=== PATIENT | female | born 1995 | race Caucasian/White ===

== ENCOUNTER 2024-05-24 15:01 | Outpatient (OUT) | payer OTHER, SELFPAY ==
[2024-05-24 15:58] LABS: Anion Gap 11.6; BUN Creatinine Ratio 12.2; Calcium 8.4 mg/dL (8.5-10.1); Carbon Dioxide 28.3 mmol/L (21.0-32.0); Chloride 105 mmol/L (98-107); Estimated GFR (African America >60 (>=60); Estimated GFR (Non-African Ame >60 (>=60); Glucose 74 mg/dL (74-106); Potassium 3.9 mmol/L (3.5-5.1); Sodium 141 mmol/L (136-145)
== END 2024-05-24 15:02 | disposition home or self-care (01) ==
PROVIDERS: PCP Family Medicine; Visit Provider Obstetrics & Gynecology
DX: Z01.812 Encounter for preprocedural laboratory examination (principal); R93.89 Abnormal findings on diagnostic imaging of other specified body structures; R10.2 Pelvic and perineal pain; E16.2 Hypoglycemia, unspecified
CPT/HCPCS: 36415; 80048

== ENCOUNTER 2024-06-04 07:32 | Day surgery (SDC) | payer OTHER, SELFPAY ==
[2024-05-24 15:20] VITALS: BP 107/66; PULSE 60; TEMP 36.3; O2SAT 96; BMI 26.3
[2024-06-04] VITALS (12 sets, daily range): BP systolic 102–123; BP diastolic 65–89; PULSE 64–95; TEMP 36.2–36.3; O2SAT 92–100; BMI 26.3
--- OUTSIDE RECORDS SUMMARY | 2024-06-04 07:39 | XMS_ITS | CCD ---
Author Organization [facility] Care Team Providers Care Transportation Analyst Name Role Phone ARIEL DAVID Unavailable Unavailable ARIEL DAVID Unavailable Unavailable YAEL PAPPAS Unavailable Unavailable ARIEL DAVID Unavailable Unavailable ARIEL DAVID Unavailable Unavailable YAEL PAPPAS Unavailable Unavailable EDDI HANLEY Attending Unavailable YAEL PAPPAS Primary Care Unavailable BERENICE MATT Consulting Unavailable EDDI HANLEY Admitting Unavailable EDDI HANLEY Consulting Unavailable YEAL PAPPAS Primary Care Unavailable NATE DENISE Attending Unavailable NATE DENISE Attending Unavailable NATE DENISE Referring Unavailable YAEL PAPPAS Primary Care Unavailable YAEL PAPPAS Primary Care Unavailable CHRISSY RIVERS Attending Unavailable CHRISSY RIVERS Attending Unavailable CHRISSY RIVRES Referring Unavailable YAEL PAPPAS Primary Care Unavailable ALTAGRACIA ANTONIO Attending Unavailable ALTAGRACIA ANTONIO Attending Unavailable ALTAGRACIA ANTONIO Referring Unavailable ORQUIDEA MACIAS Attending Unavailable ALTAGRACIA ANTONIO Referring Unavailable ORQUIDEA MACIAS Attending Unavailable Allergies Allergy Classification Reported Allergen(s) Allergy Type Date of Onset Reaction(s) Facility (3 sources) Latex; Translations: [Latex] Propensity to adverse reactions (disorder) 6 [facility] Repository (1 source) natural latex rubber; Translations: [LATEX, NATURAL RUBBER] Propensity to adverse reactions to drug (disorder) 6 [facility] Repository Problems Active Problems Problem Classification Problem Date Documented Da te Episodic/Chronic External cause codes: Fall (1 source) Fall from bed, initial encounter; Translations: [FALL FROM BED INITIAL ENCOUNTER] Onset: 09-18-2020 Inflammatory diseases of female pelvic organs (1 source) Acute vaginitis; Translations: [ACUTE VAGINITIS] Onset: 09-18-2020 Episodic Other injuries and conditions due to external causes (4 sources) Other specified injuries of head, initial encounter; Translations: [OTH SPEC INJURIES HEAD INITIAL ENC] Onset: 09-09-2020 Other non-traumatic joint disorders (1 source) Pain in right knee; Translations: [Pain in right knee] Onset: 02-27-2024 Episodic Other non-traumatic joint disorders (1 source) Knee pain Onset: 02-27-2024 Episodic Unclassified (1 source) pain rt knee Onset: 02-27-2024 Unclassified (1 source) Foot Injury Onset: 10-03-2023 Past or Other Problems Problem Classification Problem Date Documented Da te Episodic/Chronic Superficial injury; contusion (1 source) Contusion of left foot, initial encounter; Translations: [Contusion of left foot, initial encounter] Onset: 10-03-2023 Episodic Results Test Name Value Interpretation Reference Range Facility XR KNEE RT MIN 4 VWSon 02-26 XR KNEE RT MIN 4 VWS XR KNEE RT MIN 4 VWS XR KNEE RT MIN 4 VWS HISTORY: 28-year-old female with Patellar pain, knee pain COMPARISON: None TECHNIQUE: 4 views of the knee obtained. FINDINGS: No fracture or dislocation. Joint spaces are well-maintained without significant degenerative changes. Small joint effusion. No aggressive appearing osseous lesions. IMPRESSION: * Small joint effusion. * Otherwise, unremarkable knee radiographs. Approved by Resident Mickey Sepulveda MD on 02/27/2024 8:26 PM IDutch MD have personally reviewed the image(s) and agree with and/or edited the report Finalized by Dutch Bartlett MD on 02/27/2024 8:36 PM [facility] US PELVIS LIMITED BLADDERon 02-24-2024 US PELVIS LIMITED BLADDER FINDINGS: Uterus 11.5 x 4.8 x 7.1 cm Endometrium 18 mm Right ovary 2.3 x 1.6 x 2.1 cm Left ovary 3.2 x 2.8 x 2.6 cm Pre-void bladder 324 cc Post-void bladder 19 cc The uterus is normal in size and orientation. No worrisome mass lesions are seen. No fluid is seen within the cul-de-sac. Normal follicular ovaries, normal size, no adnexal mass or increase in vascularity or or adnexal fluid. Slight endometrial thickening, partial cystic component centrally within the upper body/fundus. Lobular soft tissue echotexture 3 x 3 cm structure posterior bladder wall, possibly extrinsic impression from the uterine body/fundus. IMPRESSION: 1. Complex endometrium, correlate with menstrual cycle history, LABOR RELATIONS SPECIALIST consultation if abnormal bleeding is present. 2. bladder findings likely uterine impression, possible bladder mass. CT urogram would be of assistance for further characterization. TRANSCRIBED BY: ELECTRONICALLY SIGNED BY: Cal Garg MD Normal Not Available XR FOOT LT MIN 3 VWSon 10-03 XR FOOT LT MIN 3 VWS XR FOOT LT MIN 3 VWS History: Injury, heavy object dropped on left foot, pain first and second metatarsals. EXAM: Left foot 3 views COMPARISON: None FINDINGS: No fracture or dislocation. No osseous destruction. IMPRESSION: Negative exam. Finalized by Carlos Barnett MD on 10/03/2023 10:55 PM Normal [facility] Complete Blood Counton 10-30 Erythrocyte distribution width (RBC) [Ratio] 11.6 % Normal 11.0-15.0 [facility] Power Plant Operator Apprentice Comment on above: Performed By: #### C BC, TSH reflex FT4, CMP #### [facility] [address], [place] [id number] Hematocrit (Bld) [Volume fraction] 39.1 % Normal 35.0-47.0 [facility] [employer] Operator Apprentice Comment on above: Performed By: #### C BC, TSH reflex FT4, CMP #### [facility] [address], [place] [id number] Hemoglobin (Bld) [Mass/Vol] 13.5 g/dL Normal 11.6-15.5 [facility] [employer] Operator Apprentice Comment on above: Performed By: #### C BC, TSH reflex FT4, CMP #### [facility] [address], [place] [id number] MCH (RBC) [Entitic mass] 31.1 pg Normal 27.0-33.0 [place] [employer] Operator Apprentice Comment on above: Performed By: #### C BC, TSH reflex FT4, CMP #### [facility] [address], [place] [id number] MCHC (RBC) [Mass/Vol] 34.5 g/dL Normal 32.0-36.0 [facility] Specialist Comment on above: Performed By: #### C BC, TSH reflex FT4, CMP #### [facility] [address], [place] [id number] MCV (RBC) [Entitic vol] 90 fL Normal 80-100 [facility] Specialist Comment on above: Performed By: #### C BC, TSH reflex FT4, CMP #### [facility] [address], [place] [id number] Platelet mean volume (Bld) [Entitic vol] 9.40 fL Normal 7.50-12.50 [facility] Specialist Comment on above: Performed By: #### C BC, TSH reflex FT4, CMP #### [facility] [address], [place] [id number] Platelets (Bld) [#/Vol] 206 10*3/uL Normal 140-400 [facility] Specialist Comment on above: Performed By: #### C BC, TSH reflex FT4, CMP #### [facility] [address] [place] [address], [place] [id number] RBC (Bld) [#/Vol] 4.34 10*6/uL Normal 3.90-5.[address] [facility] Comment on above: Performed By: #### C BC, TSH reflex FT4, CMP #### [facility] [address], [place] [id number] RDW-SD 38.1 fL Normal 37.0-50.0 [facility] Specialist Comment on above: Performed By: #### C BC, TSH reflex FT4, CMP #### [facility] [address], [place] [id number] WBC (Bld) [#/Vol] 5.1 10*3/uL Normal 3.8-11.0 [facility] Comment on above: Performed By: #### C BC, TSH reflex FT4, CMP #### [facility] [address], [place] [id number] Comprehensive Metabolic Pane darrell 10-30-2021 Albumin [Mass/Vol] 4.8 g/dL Normal 3.6-5.1 [facility] [employer] Operator Apprentice Comment on above: Performed By: #### C BC, TSH reflex FT4, CMP #### [facility] [address], [place] [id number] Albumin/Globulin [Mass ratio] 2.7 {ratio} High 1.0-2.5 [facility] [employer] Operator Apprentice Comment on above: Performed By: #### C BC, TSH reflex FT4, CMP #### [facility] [address], [place] [id number] ALP [Catalytic activity/Vol] 37 U/L Normal 35-119 [facility] [employer] Operator Apprentice Comment on above: Performed By: #### C BC, TSH reflex FT4, CMP #### [facility] [address] [place] [address], [place] [id number] ALT [Catalytic activity/Vol] 15 U/L Normal 6-33 [facility] [employer] Operator Apprentice Comment on above: Result Comment: 08/29 Female reference range changed. Performed By: #### C BC, TSH reflex FT4, CMP #### [facility] [address], [place] [id number] Anion gap [Moles/Vol] 16 mmol/L Normal 12-20 [facility] [employer] Operator Apprentice Comment on above: Result Comment: Effe ctive 10/04/2019 reference range changed. Performed By: #### C BC, TSH reflex FT4, CMP #### [facility] [address] [place] [address], [place] [id number] AST [Catalytic activity/Vol] 17 U/L Normal 9-34 [facility] [employer] Operator Apprentice Comment on above: Performed By: #### C BC, TSH reflex FT4, CMP #### [facility] [address] [place] [address], [place] [id number] Bilirubin [Mass/Vol] 0.49 mg/dL Normal 0.30-1.20 [facility] [employer] Operator Apprentice Comment on above: Performed By: #### C BC, TSH reflex FT4, CMP #### [facility] [address], [place] [id number] BUN/CREA 20 Ratio Normal 6-22 [place] [employer] Operator Apprentice Comment on above: Performed By: #### C BC, TSH reflex FT4, CMP #### [facility] [address] [place] [address], [place] [id number] Calcium [Mass/Vol] 9.4 mg/dL Normal 8.6-10.2 [facility] Specialist Comment on above: Performed By: #### C BC, TSH reflex FT4, CMP #### [facility] [address], [place] [id number] Chloride [Moles/Vol] 107 mmol/L Normal 98-107 [facility] Specialist Comment on above: Performed By: #### C BC, TSH reflex FT4, CMP #### [facility] [address] [place] [address], [place] [id number] CO2 [Moles/Vol] 24 mmol/L Normal 20-31 [facility] Specialist Comment on above: Performed By: #### C BC, TSH reflex FT4, CMP #### [facility] [address], [place] [id number] Creatinine [Mass/Vol] 0.7 mg/dL Normal 0.6-1.4 [facility] Specialist Comment on above: Performed By: #### C BC, TSH reflex FT4, CMP #### [facility] [address], [place] [id number] eGFRAA 120 mL/min/1.73m2 Normal >60 [facility] Comment on above: Performed By: #### C BC, TSH reflex FT4, CMP #### [facility] [address], [place] [id number] eGFRNAA 99 mL/min/1.73m2 Normal >60 [facility] Specialist Comment on above: Performed By: #### C BC, TSH reflex FT4, CMP #### [facility] [address] [place] [address], [place] [id number] Globulin (S) [Mass/Vol] 1.8 g/dL Low 1.9-3.7 [facility] Specialist Comment on above: Performed By: #### C BC, TSH reflex FT4, CMP #### [facility] [address] [place] [address], [place] [id number] Glucose [Mass/Vol] 89 mg/dL Normal 65-99 [place] [employer] Operator Apprentice Comment on above: Result Comment: For FASTING Glucose --- ADA reference ranges: Normal 65-99 mg/dl Prediabetes 100-125 Diabetes >/= 126 Performed By: #### C BC, TSH reflex FT4, CMP #### [facility] [address], [place] [id number] Potassium [Moles/Vol] 4.0 mmol/L Normal 3.5-5.5 [facility] [employer] Operator Apprentice Comment on above: Performed By: #### C BC, TSH reflex FT4, CMP #### [facility] [address], [place] [id number] Protein [Mass/Vol] 6.6 g/dL Normal 6.1-8.1 [facility] [employer] Operator Apprentice Comment on above: Performed By: #### C BC, TSH reflex FT4, CMP #### [facility] [address], [place] [id number] Sodium [Moles/Vol] 143 mmol/L Normal 135-146 [facility] [employer] Operator Apprentice Comment on above: Performed By: #### C BC, TSH reflex FT4, CMP #### [facility] [address], [place] [id number] Urea nitrogen [Mass/Vol] 14 mg/dL Normal 7-25 [facility] [employer] Plant Operator Apprentice Comment on above: Performed By: #### C BC, TSH reflex FT4, CMP #### [facility] [address], [place] [id number] TSH w/ Reflex to Free T4on 0 - TSH 0.809 uIU/mL Normal 0.400-4.500 [facility] [employer] Operator Apprentice Comment on above: Performed By: #### C BC, TSH reflex FT4, CMP #### [facility] [address], [place] [id number] CT HEAD WO CONon 09-09-2020 CT HEAD WO CON EXAM TYPE: CT HEAD W O CON EXAM DATE AND TIME: 09/09/2020 3:42 PM EST INDICATION: 25 years old Female with headache COMPARISON: Head CT of 09/01/2015. TECHNIQUE: Multiple axial CT images of the head were obtained without contrast. Dose reduction techniques were achieved by using automated exposure control and/or adjustment of mA and/or kV according to patient size and/or use of iterative reconstruction technique. FINDINGS: Ventricles and sulci are normal in size and configuration. No extra-axial collection. No intracranial hemorrhage. No mass effect or edema. No CT evidence of large territorial infarction. Visualized paranasal sinuses are well aerated. Mastoids are clear. Calvarium is unremarkable. IMPRESSION: No intracranial hemorrhage or mass effect. Electronically authenticated by: BERENICE MATT Date: 2020-09-09 16:07 Normal [facility] URon 09-09-2020 , QUAL Negative Normal NEGATIVE [facility] Comment on above: Performed By: #### P REGU #### [facility] [address] [place] [address] Christa Jolly Intraoperative Noteon 2017 Intraoperative Note [id number][address] [place] [address] History and Physicalon 09-15 History and Physical [id number]#[address] [place] [address] Operative Report - Surgeon/P hysicianon 09-15-2017 Operative Report - Surgeon/Physician [id number]#[address] Provider Orderson 09-15-2017 Provider Orders [id number]#[address] [place] [address] Coding Summaryon 07-31-2017 Coding Summary CODING DATE: 017 [facility] STATUS: Home PAYOR: Medicaid HMO ADMIT DX: REASON FOR VISIT DX: Z30.2 Encounter for sterilization FINAL DX: PRINCIPAL: Z30.2 Encounter for sterilization SECONDARY: PROCEDURES DOCTOR NAME DATE 54633 Laparoscopy, surgical; with Ariel David DO 07/29/2017 fulguration of oviducts (with or without transection) NOTE: The code number assigned matches the documented diagnosis and / or procedure in the patient's chart. However, the narrative phrase printed from the coding software may appear abbreviated, or result in slightly different terminology. Coded By: Jenny Roberson Date Saved: 07/31/2017 08:[address] [facility] Consent Formson 07-31-2017 Consent Forms [id number] Intraoperative Note [id number] Intraoperative Recordon 07-31-2017 MAGR Intraoperative Record MAGR Intra-Op Record Summary Primary Physician: Ariel David DO Finalized Date/Time: 07/31/17 12:46:05 Pt. Name: KENYON FAITH FLORENTINO /Sex: 1995 FEMALE Med Rec #: [id number] Physician: Ariel David DO Financial #: [id number] Pt. Type: D Room/Bed: / Admit/Disch: 07/29/17 08:46:03 - 07/29/17 15:00:00 Institution: Case Times MAGR Entry 1 Patient In Room Time 07/29/17 11:41:00 Out Room Time 07/29/17 12:39:00 Anesthesia Start Time 07/29/17 11:41:00 Stop Time 07/29/17 12:39:00 Surgery Start Time 07/29/17 12:07:00 Stop Time 07/29/17 12:35:00 Last Modified By: Siomara Martinez RN 07/29/17 14:24:50 Case Attendance MAGR Entry 1 Entry 2 Entry 3 Case Attendee Ariel David DO, Bradley MD Sauer, Stephanie RN Role Performed Surgeon - Primary Anesthesiologist of Supervisor Pig Machine Record Time In 07/29/17 11:41:00 07/29/17 11:41:00 07/29/17 11:41:00 Time Out 07/29/17 12:39:00 07/29/17 12:39:00 07/29/17 12:39:00 Procedure Tubal Ligation Tubal Ligation Tubal Ligation Laparoscopic Laparoscopic Laparoscopic Last Modified By: Siomara Martinez RN, Stephanie RN Sauer, Stephanie RN 07/29/17 14:24:55 07/29/17 14:24:55 07/29/17 14:24:55 Entry 4 Entry 5 Entry 6 Case Attendee Riddhi Mitchell RN, Lauren M CST Radloff, Leigh-Ann CST Role Performed Supervisor Pig Machine Scrub Personnel Mechanical Estimator Time In 07/29/17 11:41:00 07/29/17 11:41:00 07/29/17 11:41:00 Time Out 07/29/17 12:39:00 07/29/17 12:39:00 07/29/17 12:39:00 Procedure Tubal Ligation Tubal Ligation Tubal Ligation Laparoscopic Laparoscopic Laparoscopic Last Modified By: Siomara Martinez RN, Stephanie RN Sauer, Stephanie RN 07/29/17 14:24:55 07/29/17 14:24:55 07/29/17 14:24:55 Surgical Procedures MAGR Pre-Care Text: A.20 Verifies operative procedure, surgical site, and laterality Im.150 Develops individualized plan of care Entry 1 Procedure Tubal Ligation Primary Procedure Yes Laparoscopic Primary Surgeon Ariel David DO Surgeon Comment LAP BILATERAL TUBAL Start 07/29/17 12:07:00 Stop 07/29/17 12:35:00 Anesthesia Type General Surgical Service Gynecology Wound Class Clean Last Modified By: Siomara Martinez RN 07/31/17 12:45:52 Post-Care Text: O.730 The patient's care is consistent with the individualized perioperative plan of care General Case Data MAGR Pre-Care Text: A.350.1 Classifies surgical wound Entry 1 Case Information OR MAGR OR 02 Case Level Level 4 Wound Class Clean Specialty Gynecology ASA Class 1 Diagnosis Preop Diagnosis STERILIZATION Postop Same As Preop Yes Postop Diagnosis STERILIZATION Last Modified By: Siomara Martinez RN 07/31/17 12:46:00 Post-Care Text: O.760 Patient receives consistent and comparable care regardless of the setting Time Out MAGR Entry 1 Time out date/time 07/29/17 12:05:00 All team members Yes have introduced themselves by name and role Surgeon, Yes Surgeon reviews Yes anesthesia, nurse critical or confirm patient, unexpected steps, site, procedure operative duration, anticipated blood loss Anesthesia team Yes Nursing team Yes reviews any reviews sterility patient-specific (including concerns indicator results) and equipment issues/concerns Antibiotic N/A Is essential Yes prophylaxis given imaging displayed? within the last 60 minutes Last Modified By: Siomara Martinez RN 07/29/17 12:05:46 Patient Positioning MAGR Pre-Care Text: A.280 Identifies baseline musculoskeletal status Im.40 Positions the patient Im.80 Applies safety devices Entry 1 Procedure Tubal Ligation Body Position Low Lithotomy Laparoscopic Left Arm Position Extended on padded arm Right Arm Position Extended on padded arm board board Left Leg Position Secured in Stirrup Right Leg Position Secured in Stirrup Feet Uncrossed? Yes Press Points Checked Yes Positioning Device Safety Strap, Stirrups Outcome Met (O.80) Yes Last Modified By: Siomara Martinez RN 07/29/17 12:07:47 Post-Care Text: E.290 Evaluates musculoskeletal status O.80 Patient is free from signs and symptoms of injury related to positioning Skin Prep MAGR Pre-Care Text: A.30 Verifies allergies Im.270 Performs skin preparation Im.270.1 Implements protective measures to prevent skin and tissue injury due to chemical sources Entry 1 Skin Prep Syntegrity Prep Agents (Im.270) Chlorhexidine Gluconate Prep By Siomara Martinez RN and Alcohol, Povidone-Iodine Prep Area (Im.270) Abdomen Skin Prep Agent Dry Yes Without Pooling Hair Removal Syntegrity Hair Removal Methods No hair removal performed Outcome Met (O.100) Yes Last Modified By: Siomara Martinez RN 07/29/17 12:08:28 Post-Care Text: E.10 Evaluates for signs and symptoms of physical injury to skin and tissue O.100 Patient is free from signs and symptoms of chemical injury Counts Verification MAGR Pre-Care Text: A.20 Verifies operative procedure, surgical site, and laterality A.20.2 Assesses the risk for unintended retained foreign body Im.20 Performs required counts Entry 1 Procedure Tubal Ligation Laparoscopic Counts Verification Initial Counts Items included in Instruments, Sponges, Initial Counts Siomara Martinez RN, the Initial Count Sharps Performed By Riddhi Mitchell RN Initial Count Time 07/29/17 11:37:00 Counts Verification Final Counts Items Included in Sponges, Sharps Final Count Status Correct Final Count Final Counts Siomara Martinez RN, Final Count Time 07/29/17 12:32:00 Performed By Desirae Ny CST Surgeon notified of Yes final counts status Outcome Met (O.20) Yes Last Modified By: Siomara Martinez RN 07/29/17 14:26:07 Post-Care Text: E.50 Evaluates results of the surgical count O.20 Patient is free from unintended retained foreign objects Patient Care Devices MAGR Pre-Care Text: A.200 Assesses risk for normothermia regulation A.40 Verifies presence of prosthetics or corrective devices Im.280 Implements thermoregulation measures Im.60 Uses supplies and equipment within safe parameters Entry 1 Equipment Type FORCED WARM AIR UNIT Serial ?# [id number] Equipment Setting 43 degrees Last Modified By: Siomara Martinez RN 07/29/17 12:09:23 Post-Care Text: E.10 Evaluates signs and symptoms of physical injury to skin and tissue O.700 Patient is free from signs and symptoms of injury caused by extraneous objects Cautery MAGR Pre-Care Text: A.240 Assesses baseline skin condition A.40 Verifies presence of prosthetics or corrective devices Im.50 Implements protective measures to prevent injury due to electrical sources Entry 1 ESU Type Vessel Sealing System ESU Settings Syntegrity Cut Setting 20 Coag Setting 20 Grounding Pad Details Grounding Pad Yes Verified By Siomara Martinez RN Needed? Grounding Pad Site Table Grounding Pad Within Expiration Yes Date? Outcome Met (O.10) Yes Last Modified By: Siomara Martinez RN 07/29/17 12:09:47 Post-Care Text: E.10 Evaluates for signs and symptoms of physical injury to skin and tissue O.10 Patient is free from signs and symptoms of injury related to thermal sources Medication Administration MAGR Pre-Care Text: A.210 Identifies physiological status Im.220 Administers prescribed medications Entry 1 Time Administered 07/29/17 12:30:00 Medication MARCAINE 0.25% WITH EPINEPHRINE 1:200,00 Route of Admin Incisional/Surgical Site By Ariel David DO Outcome Met (O.130) Yes Last Modified By: Siomara Martinez RN 07/29/17 14:25:49 Post-Care Text: E.20 Evaluates response to medications O.130 Patient receives appropriately administered medication(s) Departure from OR MAGR Entry 1 Present on Depart Oxygen Via Stretcher Post-op Destination PACU Skin DFO Condition Dry Description Condition Warm Description Report Given To Piter, Elena RN Airway Maintenance Patient Status Stable Oxygen in Use? Yes Airway Device Nasal cannula Flow Rate 15 L/min Last Modified By: Siomara Martinez RN 07/29/17 14:29:05 Case Comments Finalized By: Siomara Martinez RN Document Signatures Signed By: Siomara Martinez RN 07/29/17 14:29 Siomara Martinez RN 07/31/17 12:46 Unfinalized History Date/Time Username Reason for Unfinalizing Freetext Reason for Unfinalizing 07/31/17 12:[address] [facility] Telemetry Stripson 7 Telemetry Strips [id number] Normal [facility] Operative Report - Surgeon/P hieu 07-30-2017 Operative Report - Surgeon/Physician DATE OF PROCEDURE: 07/29/17SURGEON: Ariel David DOANESTHESIA: Bacilio Clay MD (General)PREOPERATIVE DIAGNOSIS: Multiparity, the patient desires permanent electiveirreversible sterilization.POSTOPERATIVE DIAGNOSIS: Multiparity, the patient desires permanentelective irreversible sterilization.PROCEDURE: Laparoscopic bilateral tubal ligation via electrocauterization.COMPLICA TIONS: None.ESTIMATED BLOOD LOSS: Less than 25 cc.FLUIDS: Approximately 500 cc of lactated ringers.URINE OUTPUT: See the nurses' notes.FINDINGS: A normal uterus, tubes and ovaries.PROCEDURE: The patient was taken to the operating room and placed in thesupine position. After adequate general anesthesia, she was placed into thedorsolithotomy position and was then prepped and draped in the normal sterilefashion. Next, a weighted speculum was placed into the patient's vagina andthe anterior aspect of the cervix was then grasped with a single toothtenaculum. An Wakeman uterine manipulator was then advanced into the cervix toprovide the means to manipulate the uterus. The speculum was removed fromthe vagina and attention was then turned to the patient's abdomen. A 5 mmskin incision was then made in the infraumbilical fold. The Veress needle wasthen introduced into the peritoneal cavity at a 45 degree angle while tentingthe abdominal wall. Intraperitoneal placement was confirmed by the use of awater filled syringe and a drop in the intraabdominal pressure with theinsufflation of CO2 gas. The trocar and sleeve (5 mm) were then advancedwithout difficulty where placement was confirmed by the laparoscope. Thepneumoperitoneum was then obtained with approximately 2.5 liters of CO2 gasand a 5 mm trocar and sleeve were advanced without difficulty where placementwas confirmed by the laparoscope. A second skin incision was then made 2 cmabove the pubic symphysis in the midline. The second trocar and sleeve (5mm) were then advanced under direct visualization. A survey of the patient'spelvis and abdomen revealed normal anatomy. The LigaSure was then applied tothe patient's left fallopian tube which was identified and followed out tothe fimbriated end. Then the LigaSure was applied to the mid ischemic areawith knuckles of tube noted with good blanching at the sites of application.After a 3 cm segment of the tube was electrocauterized and cut, there was nobleeding in the mesosalpinx. Next, the LigaSure was then applied to thepatient's right tube which was coagulated and cut in a similar fashion. Theinstruments were then removed from the patient's abdomen and the incisionswere repaired with 4-0 Vicryl in a subcuticular manner and the Wakeman uterinemanipulator was then removed from the patient's vagina with no bleeding notedfrom the cervix. The patient tolerated the procedure well. Sponge, lap,needle and instrument counts were correct x2. The patient was taken to therecovery awake and in stable condition.MALIK Rubalcava #: [id number]: 07/29/2017T: 07/30/2017[Electronically Signed on: 08/05/2017 09:18 EST] Ariel David DO, D.O.[Verified on: 08/05/2017 09:18 EST] Ariel David DO, D.O.[Transcribed on: 07/30/2017 07:12 EDT]GDU [facility] Anesthesia Noteon 07-29-2017 Anesthesia Note Patient: MIKAELA FAITH : 22 years Sex: FEMALE : [birth year]Associated Diagnoses: NoneAuthor: Bacilio Clay MDPostoperative InformationPost Operative Note: Post Anesthesia Care Unit.Anesthetic utilized: General.Health StatusAllergies:Allergic Reactions (All)Severity Not DocumentedLatex- Rash.Canceled/Inactive Reactions (All)No Known Medication AllergiesPhysical ExaminationVS/MeasurementsVit al Signs (last 24 hrs) Last ChartedHeart Rate Peripheral 85 bpm (JUL 29 09:12)Resp Rate 18 br/min (JUL 29:38)SBP 130 mmHg (JUL 29:38)DBP 64 mmHg (JUL 29:38)SpO2 100 % (JUL 29:38)Review / ManagementCondition: Stable.AssessmentAnesthetic outcomeNo anesthetic complications noted.Adequate pain relief.PlanTransfer/ Discharge: Patient can be discharged from PACU when criteria met.Condition good.[Electronically Signed on: 07/29/2017 12:44 EDT] Bacilio Clay MD[Verified on: 07/29/2017 12:44 EDT] Bacilio Clay MD [facility] Anesthesia Note Patient: MIKAELA FAITH : 22 years Sex: FEMALE : [birth year]Associated Diagnoses: NoneAuthor: Bacilio Clay MDPreoperative InformationAnesthesia history: Patient history: No prior anesthesia problems. Family history: No prior anesthesia problems.Review of SystemsConstitutional: Negative.Respiratory: No shortness of breath.Cardiovascular: No chest pain.Health StatusAllergies:Allergic Reactions (All)Severity Not DocumentedLatex- Rash.Canceled/Inactive Reactions (All)No Known Medication AllergiesCurrent medications:Home Medications (1) Activenitrofurantoin macrocrystals-monohydrate 100 mg oral capsule 100 mg = 1 cap(s), PO, BIDProblem list (past medical history):All ProblemsAnemia / SNOMED CT 067892462 / ConfirmedHistoriesFamily History:No family history items have been selected or recorded.Procedure history:Esophagogastroduodeno scopy ([id number]).Social History Alcohol Assessment Use: Never. Tobacco Assessment Never (less than 100 in lifetime) Tobacco Use:. Substance Abuse Assessment Substance use: Never..Social & Psychosocial QwxgfvXxdnira44/26/2017 Alcohol Use: NeverSubstance Abuse07/24/2017 Substance use: RqgfqUhcbdrz90/26/2017 Smoking tobacco use: Never (less than 100 in l.Physical ExaminationVS/MeasurementsVit al Signs (last 24 hrs) Last ChartedHeart Rate Peripheral 85 bpm (JUL 29 09:12)Resp Rate 16 br/min (JUL 29:12)SBP 110 mmHg (JUL 29 09:12)DBP 71 mmHg (JUL 29 09:12)SpO2 100 % (JUL 29 09:12)Pain assessment: Self-reports no pain.General: Alert and oriented, No acute distress.Airway: Mallampati classification: I (soft palate, fauces, uvula, pillars visible). Mouth: Within normal limits.Respiratory: Lungs are clear to auscultation.Cardiovascular: Normal rate, Regular rhythm.Neurologic: Alert, Oriented.Review / ManagementLaboratory ResultsPlanAmerican Society of Anesthesiologists#(ASA) physical status classification: Class I.Anesthetic Preoperative PlanAnesthesia: General.. Anesthetic plan, risks, benefits, and alternatives discussed with the patient and/or family. Risks discussed: nausea, vomiting, sore throat. Patient verbalized understanding. Informed consent was given. Consent was signed by the patient. No family present. Communication: face to face with patient 10 minutes.[Electronically Signed on: 07/29/2017 12:11 EDT] Bacilio Clay MD[Verified on: 07/29/2017 12:11 EDT] Bacilio Clay MD [facility] Coding Summaryon 07-29-2017 Coding Summary CODING DATE: 017 [facility] STATUS: Home PAYOR: Medicaid HMO ADMIT DX: REASON FOR VISIT DX: Z01.812 Encounter for preprocedural laboratory examination FINAL DX: PRINCIPAL: Z01.812 Encounter for preprocedural laboratory examination SECONDARY: PROCEDURES DOCTOR NAME DATE NOTE: The code number assigned matches the documented diagnosis and / or procedure in the patient's chart. However, the narrative phrase printed from the coding software may appear abbreviated, or result in slightly different terminology. Coded By: Yael Azul Date Saved: 07/29/2017 09:[address] [facility] Inpatient Clinical Summaryon 07-29-2017 Inpatient Clinical Summary [facility] SURGERYClinical Discharge SummaryPERSON INFORMATIONName KENYON FAITH Age 22 Years [birth year]Sex FEMALE Language German [facility] SurgeryN [id number] Acct# Arrival 07/29/17 08:46:03Visit Reason SURGERY - LAP BILATERAL TUBAL Acuity LOS 012 22:17Address:[address] [id number]:PROVIDER INFORMATIONVITALS INFORMATIONVital Sign Triage LatestTemp OralTemp TemporalTemp IntravascularTemp AxillaryTemp Cbuemo18 Sat 98 % 100 %Respiratory Rate 16 br/min 18 br/minPeripheral Pulse Rate 77 bpm 85 bpmApical Heart RateBlood Pressure 102 mmHg / 68 mmHg 130 mmHg / 64 mmHgComment:MEDICAL INFORMATIONAllergy Info:LatexPrescriptions Given:Prescription Displayacetaminophen-hydrocod one (Wood 5 mg-325 mg oral tablet) 1 tab(s), PO, q6hr, Instructions: may take 1 or 2 tablets not to exceed 8 tablets/day, PRN: for pain, # 12 tab(s), 0 Refill(s)ibuprofen (ibuprofen 600 mg oral tablet) 1 tab(s) ( 600 mg ), PO, q6hr, PRN: as needed for pain, # 60 tab(s), 0 Refill(s)Home Meds Displaynitrofurantoin (nitrofurantoin macrocrystals-monohydrate 100 mg oral capsule) 1 cap(s) ( 100 mg ), PO, BID, # 20 cap(s), 0 Refill(s)Medication List:Fill New Prescriptions:acetaminophen-h ydrocodone (Wood 5 mg-325 mg oral tablet) 1 tab(s) Oral Every 6 hours as needed for for pain may take 1 or 2 tabletsnot to exceed 8 tablets/dayibuprofen (ibuprofen 600 mg oral tablet) 600 mg Oral Every 6 hours as needed for as needed for painContinue These Medications:nitrofurantoin (nitrofurantoin macrocrystals-monohydrate 100 mg oral capsule) 100 mg Oral 2 times a day 10 day(s)Comment:Lab and Radiology ResultsLaboratory or Other Results This Visit (last charted value for your 07/29/2017 visit) Chemistry 07/29/2017 9:04 AM U Preg: NegativeDIET & ACTIVITYPatient Activity Level:Patient Diet:Patient Activity Restrictions:DISCHARGE INFORMATIONDischarge Disposition:Discharge Location:DEPART REASON INCOMPLETE INFORMATIONPATIENT EDUCATION INFORMATIONInstructions:Lapar oscopic Tubal LigationFollow up:With: Address: When:Ariel David [address] [place], [place] [phone] Business (1) In 2 weeks 08/12/17Comments:Call for follow up appointmentWith: Address: When:YAEL PAPPAS [address] [place], [place] [phone] Business (1)DIAGNOSIS1:MultiparityComm ent:PHYS DOC NOTES Normal [facility] Inpatient Patient Summaryon 07-29-2017 Inpatient Patient Summary [place] [id number] [place] [id number] patient Discharge InstructionsName: KENYON FAITHINEDOB: [birth year] Address: [address] [place] [address] Care Provider:Name: YAEL PAPPASPhone: Discharge Diagnosis: 1:MultiparityIf you received any narcotics, sedation, or any other medication that causes drowsiness for the next 24 hours, unless otherwise directed:? Do not drive a car.? Do not operate machinery such as power tools, lawn mowers, drills, sewing machines, or stoves? Avoid alcoholic beverages and drugs for allergies, nerves, or sleep? Do not make important personal or business decisions or sign any legal documentsPromedica Memorial Hospital would like to thank you for allowing us to assist you with your healthcare needs. The following includes patient education materials and information regarding your injury/illness.KENYON FAITH has been given the following list of follow-up instructions, prescriptions, and patient education materials:Follow-up InstructionsWith: Address: When:Ariel David [address] [place], [place] [id number] Business (1) In 2 weeks 08/12/17Comments:Call for follow up appointmentWith: Address: When:YAEL MIAN [address] [place] [address] Business (1)MedicationsDuring the course of your visit, your medication list was updated with the most current information. The details of those changes are reflected below:New MedicationsPrinted Prescriptionsacetaminophen-hy drocodone (Wood 5 mg-325 mg oral tablet) 1 tab(s) Oral Every 6 hours as needed for pain. may take 1 or 2 tabletsnot to exceed 8 tablets/day. Refills: 0.ibuprofen (ibuprofen 600 mg oral tablet) 1 tab(s) Oral Every 6 hours as needed as needed for pain. Refills: 0.Medications to Continue That Have Not ChangedOther Medicationsnitrofurantoin (nitrofurantoin macrocrystals-monohydrate 100 mg oral capsule) 1 cap Oral 2 times a day for 10 Days.It is important to always keep an active list of medications available so that you can share with other providers and manage your medications appropriately. As an additional courtesy, we are also providing you with your final active medications list that you can keep with you.acetaminophen-hydrocodone (Wood 5 mg-325 mg oral tablet) 1 tab(s) Oral Every 6 hours as needed for pain. may take 1 or 2 tabletsnot to exceed 8 tablets/day. Refills: 0.ibuprofen (ibuprofen 600 mg oral tablet) 1 tab(s) Oral Every 6 hours as needed as needed for pain. Refills: 0.nitrofurantoin (nitrofurantoin macrocrystals-monohydrate 100 mg oral capsule) 1 cap Oral 2 times a day for 10 Days.Take only the medications listed above. Contact your doctor prior to taking any medications not on this list.Diet & ActivityPatient Activity Level:Patient Diet:Patient Activity Restrictions:Comment:Patient education materials, if any, will display belowLaparoscopic Tubal LigationLaparoscopic tubal ligation is a procedure that closes the fallopian tubes at a time other than right after childbirth. When the fallopian tubes are closed, the eggs that are released from the ovaries cannot enter the uterus, and sperm cannot reach the egg. Tubal ligation is also known as getting your tubes tied. Tubal ligation is done so you will not be able to get or have a baby.Although this procedure may be undone (reversed), it should be considered permanent and irreversible. If you want to have future pregnancies, you should not have this procedure. LET YOUR HEALTH CARE PROVIDER KNOW ABOUT:? Any allergies you have.? All medicines you are taking, including vitamins, herbs, eye drops, creams, and itdg-ych-mygkqrd medicines. This includes any use of steroids, either by mouth or in cream form.? Previous problems you or members of your family have had with the use of anesthetics.? Any blood disorders you have.? Previous surgeries you have had.? Any medical conditions you may have.? Possibility of , if this applies.? Any past pregnancies.RISKS AND COMPLICATIONS? Infection.? Bleeding.? Injury to surrounding organs.? Side effects from anesthetics.? Failure of the procedure.? Ectopic .? Future regret about having the procedure done.BEFORE THE PROCEDURE? Ask your health care provider about:? Changing or stopping your regular medicines. This is especially important if you are taking diabetes medicines or blood thinners.? Taking medicines such as aspirin and ibuprofen. These medicines can thin your blood. Do not take these medicines before your procedure if your health care provider instructs you not to.? Follow instructions from your health care provider about eating and drinking restrictions.? Plan to have someone take you home after the procedure.? If you go home right after the procedure, plan to have someone with you for 24 hours.PROCEDURE? You will be given one or more of the following:? A medicine that helps you relax (sedative).? A medicine that numbs the area (local anesthetic).? A medicine that makes you fall asleep (general anesthetic).? A medicine that is injected into an area of your body that numbs everything below the injection site (regional anesthetic).? If you have been given general anesthetic, a tube will be put down your throat to help you breathe.? Two small cuts (incisions) will be made in the lower abdominal area and near the belly button.? Your bladder may be emptied with a small tube (catheter).? Your abdomen will be inflated with a safe gas (carbon dioxide). This will help to give the surgeon room to operate and visualize, and it will help the surgeon to avoid other organs.? A thin, lighted tube (laparoscope) with a camera attached will be inserted into your abdomen through one of the incisions near the belly button. Other small instruments will be inserted through the other abdominal incision.? The fallopian tubes will be tied off or burned (cauterized), or they will be blocked with a clip, ring, or clamp. In many cases, a small portion in the center of each fallopian tube will also be removed.? After the fallopian tubes are blocked, the gas will be released from the abdomen.? The incisions will be closed with stitches (sutures).? A bandage (dressing) will be placed over the incisions.The procedure may vary among health care providers and hospitals.AFTER THE PROCEDURE? Your blood pressure, heart rate, breathing rate, and blood oxygen level will be monitored often until the medicines you were given have worn off.? You will be given pain medicine as needed.? If you had general anesthetic, you may have some mild discomfort in your throat. This is from the breathing tube that was placed in your throat while you were sleeping.? You may experience discomfort in the shoulder area from some trapped air between your liver and your diaphragm. This sensation is normal, and it will slowly go away on its own.? You will have some mild abdominal discomfort for 3?7 days.This information is not intended to replace advice given to you by your health care provider. Make sure you discuss any questions you have with your health care provider.Document Released: 12/22/2001 Document Revised: 01/30/2016 Document Reviewed: 08/25/2016[employer] Patient Education ?2016 [employer]. Viruses or BacteriaWhat?s got you sick?Antibiotics only treat bacterial infections. Viral illnesses cannot be treated with antibiotics. When an antibiotic is not prescribed, ask your healthcare professional for tips on how to relieve symptoms and feel better. Usual CauseIllnessVirusesBacteria Antibiotic NeededCold/Runny Nose NOBronchitis/Chest Cold (in otherwise healthy children and adults) NOWhooping Cough YesFlu NOStrep Throat YesSore Throat (except strep) NOFluid in the middle ear (otitis media with effusion) NOUrinary Tract Infection YesAntibiotics Aren?t Always the Answerwww.cdc.gov/getsmart GET SMART Know When Antibiotics [place] Department of Health and Human ServicesCenters for Disease Control and Prevention May 2014 [facility] Primary Physician: Ariel David DO Finalized Date/Time: 07/29/17 13:20:53 Pt. Name: KENYON FAITH FLORENTINO /Sex: 1995 FEMALE Med Rec #: [id number] Physician: Ariel David DO Financial #: [id number] Pt. Type: D Room/Bed: / Admit/Disch: 07/29/17 08:46:03 - Institution: PACU Case Times MAGR Entry 1 In PACU I 07/29/17 12:38:00 Discharge from PACU 07/29/17 13:20:00 I Last Modified By: Elena Dumas RN 07/29/17 13:20:51 General Comments: Taken back to [facility] for phase II. Had been shivering post op, given Demerol 12.5. Made her nauseated for a little bit. No nausea now, states no pain. Taking ice chips. No distress noted. Finalized By: Elena Dumas RN Document Signatures Signed By: Elena Dumas RN 07/29/17 13:20 [facility] 07-29-2017 [facility] Postoperative Record MAGR Phase II Record Summary Primary Physician: Ariel David DO Finalized Date/Time: 07/29/17 15:08:30 Pt. Name: MARCELLKENYON/Sex: 1995 FEMALE Med Rec #: [id number] Physician: Ariel David DO Financial #: [id number] Pt. Type: D Room/Bed: / Admit/Disch: 07/29/17 08:46:03 - Institution: Phase II Case Times MAGR Pre-Care Text: Patient is free from s/s of injury. Patient remains free from compromised physical state related to surgery or anesthesia. Patient comfort maintained. Patient/family verbalize understanding of discharge instructions. Entry 1 In PACU II 07/29/17 13:22:00 Discharge from PACU 07/29/17 15:00:00 II Last Modified By: Elena Dumas RN 07/29/17 15:03:48 Post-Care Text: The patient remains free from s/s of injury. Patient's vital signs stable, circulation maintained, return to preop mental and physical status, opsite/dressing intact, minimal or absent nausea and vomiting, tolerates po intake. Patient verbalizes adequate pain control. Patient/family express understanding of discharge instructions. General Comments: Patient nauseated off and on during phase II. Slept a lot. Did not eat any of the grilled cheese, at some juan j crackers. Father to her children showed up to give her a ride. He helped her dress. I wanted her to stay and get some more IV fluids and she said she had to go. Had a 50cc emesis in the elevator. Asked her to go back to her room and lie down, she said no. I said do you have somewhere you have to be and she said no, he does. Left in private car. Looked tired but no distress. Finalized By: Elena Dumas RN Document Signatures Signed By: Elena Dumas RN 07/29/17 15:08 [facility] Preoperative Record MAGR Pre-Op Record Summary Primary Physician: Ariel David DO Finalized Date/Time: 07/29/17 11:41:19 Pt. Name: KENYON FAITH /Sex: 1995 FEMALE Med Rec #: [id number] Physician: Ariel David DO Financial #: [id number] Pt. Type: D Room/Bed: / Admit/Disch: 07/29/17 08:46:03 - Institution: Pre-Op Case Times MAGR Pre-Care Text: Patient will be optimally prepared for surgery. Patient is free from s/s of injury. Provide information to patient/family related to plan of care. Verify patient allergies. Confirm identity and verify consent before the operative or invasive procedure. Entry 1 Patient Arrival Time 07/29/17 09:11:00 Preop Departure 07/29/17 11:41:00 Last Modified By: Marychuy Echeverria RN 07/29/17 11:41:16 Post-Care Text: Patient is prepared mentally and physically and is ready for surgery. The patient remains free from s/s of injury. Patient/family express understanding of plan of care and participate in decisions affecting his or her perioperrative plan of care. Allergies documented appropriately. Patient identifiers and consent correct. General Comments: arrives ambulatory to [facility], denies recent cp, sob, new illnesses, pacemaker, defibrillator or sleep apnea Finalized By: Marychuy Echeverria RN Document Signatures Signed By: Marychuy Echeverria RN 07/29/17 11:41 [facility] Test Urine 1on U Preg Negative [facility] Comment on above: Performed By: #### 3 [id number] ####[facility] (DEFAULT)[address] [place] [address] U Preg Internal Control Pass [facility] Comment on above: Performed By: #### 3 [id number] ####[facility] (DEFAULT)[address] [place] [id number] Progress Note - Nurseon 07-01 Progress Note - Nurse Preop call completed, patient arriving at 0900 on 07/29/17[Electronically Signed on: 07/28/2017 09:58 EDT] Marychuy Echeverria RN[Verified on: 07/28/2017 09:58 EDT] Marychuy Echeverria RN Normal [facility] Provider Orderson 07-25-2017 Provider Orders [id number]#1.00OTGTIFF Normal [facility] .Auto Diff 1on 07-24-2017 Auto Baso % 0.5 % Normal 0.2-2.0 [facility] Comment on above: Performed By: #### 7 [id number], [id number] ####[facility] (DEFAULT)[address] [place] [address] Auto [place] % 8 % Normal 1-12 [facility] Comment on above: Performed By: #### 7 [id number], [id number] ####[facility] (DEFAULT)[address] [place] [address] Auto Neut % 56 % Normal 44-88 [facility] Comment on above: Performed By: #### 7 [id number], [id number] ####[facility] (DEFAULT)[address] [place] [address] Baso Abs# 0.0 x10 Normal 0.0-0.2 [facility] Comment on above: Performed By: #### 7 [id number], [id number] ####[facility] (DEFAULT)[address] [place] [address] Eos Abs# 0.0 x10 Normal 0.0-0.4 [facility] Comment on above: Performed By: #### 7 [id number], [id number] ####[facility] (DEFAULT)[address] [place] [address] Eosinophils/100 leukocytes 0.6 % Low 0.9-4.0 [facility] Comment on above: Performed By: #### 7 [id number], [id number] ####[facility] (DEFAULT)[address] [place] [address] Lymphocytes 2.2 x10 Normal 1.3-2.9 [facility] Comment on above: Performed By: #### 7 [id number], [id number] ####[facility] (DEFAULT)[address] [place] [address] Lymphocytes/100 leukocytes 34 % Normal 14-48 [facility] Comment on above: Performed By: #### 7 [id number], [id number] ####[facility] (DEFAULT)[address] [place] [address] [place] Abs# 0.5 x10 Normal 0.0-0.8 [facility] Comment on above: Performed By: #### 7 [id number], [id number] ####[facility] (DEFAULT)[address] [place] [address] Neut Abs# 3.5 x10 Normal 1.5-9.2 [facility] Comment on above: Performed By: #### 7 [id number], [id number] ####[facility] (DEFAULT)[address] [place] [address] CBC w/ Auto Diffon 7 Erythrocyte distribution width Auto Ratio (RBC) 12.6 % Normal 11.5-15.0 [facility] Comment on above: Performed By: #### 7 [id number], [id number] ####[facility] (DEFAULT)[address] [place] [address] Erythrocytes (RBC) 4.19 x10 Normal 3.70-5.30 [facility] Comment on above: Performed By: #### 7 [id number], [id number] ####[facility] (DEFAULT)[address] [place] [address] Hematocrit (HCT) 36.6 % Normal 33.7-40.4 [facility] Comment on above: Performed By: #### 7 [id number], [id number] ####[facility] (DEFAULT)[address] [place] [address] Hemoglobin mass conc (Bld) 12.9 g/dL Normal 11.3-15.9 [facility] Comment on above: Performed By: #### 7 [id number], [id number] ####[facility] (DEFAULT)[address] [place] [address] Man Diff? Auto Normal [facility] Comment on above: Performed By: #### 7 [id number], [id number] ####[facility] (DEFAULT)[address] [place] [id number] MCH 31 pg Normal 24-34 [facility] Comment on above: Performed By: #### 7 [id number], [id number] ####[facility] (DEFAULT)[address] [place] [id number] MCHC mass conc (RBC) 35 g/dL Normal 26-37 [facility] Comment on above: Performed By: #### 7 [id number] ####[facility] (DEFAULT)[address] [place] [address] [id number] MCV 87 fL Normal 81-100 [facility] Comment on above: Performed By: #### [id number] ####[facility] (DEFAULT)[address] [place] [address] [id number] Platelet mean volume (PMV) 9.2 fL Normal 6.3-10.2 [facility] Comment on above: Performed By: #### [id number] ####[facility] (DEFAULT)[address] [place] [address] 11747 Platelets 244 x10 Normal 138-427 [facility] Comment on above: Performed By: #### [id number] ####[facility] (DEFAULT)[address] [place] [address] 45394 WBC (Leukocytes) 6.3 x10 Invalid Interpretation Code [facility] Comment on above: Performed By: #### [id number] ####[facility] (DEFAULT)[address] [place] [address] 26878 Encounters Encounter Date Encounter Type Care Provider Facility Start: 05-10-2024 End: 05-10-2024 ambulatory ORQUIDEA COLLEEN Not Available Start: 04-13-2024 End: 04-13-2024 ambulatory ORQUIDEA COLLEEN Not Available Start: 02-27-2024 End: 02-28-2024 Emergency department patient visit [facility] Start: 02-24-2024 End: 02-24-2024 ambulatory ALTAGRACIA L FLORO Not Available Start: 02-18-2024 End: 02-18-2024 ambulatory ALTAGRACIA L FLORO Not Available Start: 12-08-2023 End: 12-08-2023 ambulatory ALTAGRACIA L FLORO Not Available Start: 10-03-2023 End: 10-04-2023 Emergency department patient visit CHRISSY DOLANKHATIB [facility] Start: 09-09-2020 End: 09-09-2020 Patient encounter procedure EDDI HANLEY Facility: Start: 07-29-2017 End: 08-05-2017 Ambulatory ARIEL DAIVD Facility:[facility] Start: 07-25-2017 End: 07-25-2017 Ambulatory [facility] Facility:[facility] Payers Date Payer Category Payer Medicaid [id number] 2017 Medicaid [id number] 1994 Unknown [id number] 2.16.84 [id number] 1994 Unknown [id number] 2.16.8 [id number] 1994 Unknown [id number] 2.16.8 [id number] 1994 Unknown [id number] 2.16.84 0.1.033119.3.579.2.1286 1994 Unknown [id number] 2.16.84 0.1.479157.3.579.2.1286 1994 Unknown [id number] 2.16.84 0.1.746040.3.579.2.1259 1994 Unknown [id number] 2.16.84 0.1.779546.3.579.2.1259 1994 Unknown [id number] 2.16.84 0.1.838301.3.579.2.1259 1994 Unknown [id number] 2.16.84 0.1.418885.3.579.2.1259 1994 Unknown [id number] 2.16.84 [id number] 1959 Unknown [id number] Summary Purpose Family History No Family History Records FoundNo Family History Records FoundNo Family History Records FoundNo Family History Records FoundNo Family History Records Found Advance Directives No Advanced Directives Records FoundNo Advanced Directives Records FoundNo Advanced Directives Records FoundNo Advanced Directives Records FoundNo Advanced Directives Records Found Additional Source Comments INFORMATION SOURCE (unrecogn ized section and content) DATE CREATED AUTHOR 03/24/2018 [facility] DATE CREATED AUTHOR AUTHOR'S ORGANIZ ATION 09/18/2020 [facility] DATE CREATED AUTHOR AUTHOR'S ORGANIZ ATION 10/31/2021 [facility] DATE CREATED AUTHOR AUTHOR'S ORGANIZ ATION 02/28/2024 [facility] DATE CREATED AUTHOR AUTHOR'S ORGANIZ ATION 05/12/2024 [facility] FOR RECORDS PERTAINING TO PATIENTS WHO ARE OR HAVE BEEN ENROLLED IN A CHEMICAL DEPENDENCY/SUBSTANCEABUSE PROGRAM, SOME INFORMATION MAY BE OMITTED. This clinical summary was aggregated from multiple sources. Caution should be exercised in using it in the provision of clinical care. This summary normalizes information from multiple sources, and as a consequence, information in this document may materially change the coding, format and clinical context of patient data. In addition, data may be omitted in some cases. CLINICAL DECISIONS SHOULD BE BASED ON THE PRIMARY CLINICAL RECORDS. [facility] [employer] [facility]. provides no warranty or guarantee of the accuracy or completeness of information in this document.
[2024-06-04 07:44] LABS: Basophils Percent Auto 0.7 % (0.2-2.0); Eosinophils Absolute Auto 0.1 10^3/uL (0.0-0.7); Eosinophils Percent Auto 1.5 % (0.9-7.0); Hematocrit 38.3 % (36.0-48.0); Hemoglobin 13.3 g/dL (12.0-16.0); Immature Granulocytes Abs Auto 0.01 10^3/uL (0.00-0.03); Immature Granulocytes Pct Auto 0.2 % (0.0-0.5); Lymphocytes Percent Auto 34.7 % (20.5-60.0); Mean Corpuscular HGB Conc 34.7 g/dL (29.9-35.2); Mean Corpuscular Hemoglobin 30.4 pg (26.7-34.0); Mean Corpuscular Volume 87.6 fL (81.0-99.0); Mean Platelet Volume 9.5 fL (9.5-13.5); Monocytes Absolute Auto 0.4 10^3/uL (0.3-0.8); Monocytes Percent Auto 6.9 % (1.7-12.0); Neutrophils Absolute Auto 3.3 10^3/uL (1.4-6.5); Platelet Count 184 10^3/uL (150-450); Red Blood Count 4.37 10^6/uL (4.20-5.40); Red Cell Distribution Width 11.9 % (11.0-15.0); White Blood Count 5.8 10^3/uL (4.0-11.0)
[2024-06-04] MEDS: LACTATED RINGER'S SOLUTION 1,000 ML 50 ML IV ×2 (08:19→10:13)
[2024-06-04 08:20] LABS: HCG Quantitative <1 mIU/mL
--- NOTE | 2024-06-04 09:59 | P.ON_ITS ---
Brief Operative Note Date of procedure: 06/04/24 Pre-op diagnosis general: pelvic pain, aub, thickend endometrial lining Post-op diagnosis: same as pre-op Procedure: NAME OF PROCEDURE: [d&c hysteroscopy, diagnostic laparoscopy] PROCEDURE: The patient was taken back to the Operating Room where she was prepped and draped in normal sterile fashion after being placed under general anesthesia without difficulty. She was also placed in the dorsal lithotomy position. A weighted speculum was placed in the patient?s vagina. The anterior lip of the cervix was identified and grasped with a single tooth tenaculum. The patient?s uterus was then sounded roughly to [?8] cm. The patient was then gently dilated using Hegar dilators. The hysteroscope was passed through the patient?s cervix into the uterus. Both ostia were identified. Normal appearing endometrium. No gross evidence of polyps, fibroids or malignancy. The hysteroscope was then removed from the patient's uterus.? At that point, gentle curettage was performed until a gritty texture was noted. The endometrial curettings were sent out to pathology.? The single tooth tenaculum was then removed from the patient's anterior lip of the cervix where excellent hemostasis was noted. . A sponge stick was placed into the patient's vagina. Attention was turned to the patient's abdomen, where a small umbilical incision was made. The fascia was tented using Roldan clamps and the fascia was entered sharply. Confirmation of intraabdominal placement of the 10 mm port was confirmed under direct visualization using a laparoscope. The patient's abdomen was then insufflated us ing CO2 gas with approximately 4 liters. A second port was placed left laterally, this was done under direct visualization with a 5 mm port. Survey of the patient's abdomen demonstrated normal liver and gallbladder. Survey of the patient's pelvic anatomy demonstrated normal appearing rt and lt ovary and tubes as well as normal appearing uterus. No endometrial implants could be noted, no evidence of any pelvic disease was seen, normal appearing pelvic cavity. All instruments were removed from the patient's abdomen. The patient's abdomen was deinsufflated of CO2 gas. The patient tolerated the procedure well. Sponge stick was removed from the patient's vagina. The patient's infraumbilical fascia was closed using #0 Vicryl on a GI needle. The patient's skin was closed laterally and infraumbilically using 4-0 Vicryl. The patient tolerated the procedure well. Sponge, lap and needle counts were correct x 2. The patient was taken to Recovery Room in stable condition. Anesthesia: JASSI Surgeon: Pardeep Vega Service Representative: Tarah Mayorga Estimated blood loss (mL): 5 Pathology: none sent Condition: stable Disposition: PACU Urinary Catheter Management Urinary Catheter Management Urethral: Cath placed during this visit: no
[2024-06-04] MEDS: MEPERIDINE HCL/PF 25 MG/ML VIAL 12.5 MG IVP (10:36)
--- NOTE | 2024-06-04 11:58 | PC.NURSE ---
1155: pt ambulates to bathroom with minimal assistance,pt voids without difficulty.
== END 2024-06-04 12:00 | disposition home or self-care (01) ==
PROVIDERS: PCP Family Medicine; Visit Provider Obstetrics & Gynecology
PROC: (CPT 840; principal; 2024-06-04 08:50)
DX: R93.89 Abnormal findings on diagnostic imaging of other specified body structures (principal); R10.2 Pelvic and perineal pain; Z98.51 Tubal ligation status
CPT/HCPCS: 49320; 58558; 36415; 84702; 85025; 88305; J1100; J1885; J2175; J2250; J2405; J2704; J3010